=== PATIENT | female | born 1985 | race Caucasian/White ===

== ENCOUNTER 2018-07-06 00:08 | Emergency (ER) | payer SELFPAY ==
[~2018-07-06] VITALS: Ht 160 cm; Wt 100.0 kg
[~2018-07-06 00:08] MED LIST: ALBU2.5V13 NEB; BENZ2TAB7 PO; CYCL5TAB PO; GABAPENTIN; HYDR-3735 GT; HYDR-519 PO; LURA40TA PO; MISO200T PO; Pantoprazole Sodium PO; TERB250T51 PO; TRAM50TA3 PO; TRIA15OI8 TP
[2018-07-06] MEDS ORDERED: ONDANSETRON 4MG ODT PO ONE (04:15)
[2018-07-06] MEDS ORDERED: KETOROLAC 60MG/2ML VIAL IM ONE (04:15)
[2018-07-06 05:55] VITALS: BP 120/74
== END 2018-07-06 05:55 | disposition home or self-care (01) ==
LOC: ER 00:08
DX: S93.401A Sprain of unspecified ligament of right ankle, initial encounter (principal); R11.2 Nausea with vomiting, unspecified; R19.7 Diarrhea, unspecified; J45.909 Unspecified asthma, uncomplicated; F17.200 Nicotine dependence, unspecified, uncomplicated; W01.0XXA Fall on same level from slipping, tripping and stumbling without subsequent striking against object, initial encounter; Y93.01 Activity, walking, marching and hiking; Y93.89 Activity, other specified; Y92.834 Zoological garden (Zoo) as the place of occurrence of the external cause; Z88.0 Allergy status to penicillin; Z88.3 Allergy status to other anti-infective agents; Z88.6 Allergy status to analgesic agent; Z90.49 Acquired absence of other specified parts of digestive tract
CPT/HCPCS: 73610; 81025; 96372; 99283; J1885; Q0162

== ENCOUNTER 2018-07-11 14:53 | Emergency (ER) | payer SELFPAY ==
[~2018-07-11] VITALS: Ht 160 cm; Wt 100.0 kg
[2018-07-11 23:06] VITALS: BP 120/86
[2018-07-11 23:28] LABS: CLARITY URINE CLOUDY (CLEAR); COLOR URINE YELLOW (YELLOW); KETONES URINE NEGATIVE (NEGATIVE); LEUKOCYTE ESTERASE URINE NEGATIVE (NEGATIVE); NITRITE URINE NEGATIVE (NEGATIVE); OCCULT BLOOD URINE NEGATIVE (NEGATIVE); PH URINE 6.5 (4.5-8.0); PROTEIN URINE NEGATIVE (NEGATIVE); SPECIFIC GRAVITY URINE 1.029 (1.005-1.030)
[2018-07-11] MEDS ORDERED: ACETAMINOPHEN 325MG TABLET PO ONE (23:30)
[2018-07-11] MEDS ORDERED: TRAMADOL 50MG TABLET PO ONE (23:45)
== END 2018-07-12 00:52 | disposition left against medical advice (07) ==
LOC: ER 14:53
DX: S09.8XXA Other specified injuries of head, initial encounter (principal); R55 Syncope and collapse; F17.200 Nicotine dependence, unspecified, uncomplicated; J45.909 Unspecified asthma, uncomplicated; W01.190A Fall on same level from slipping, tripping and stumbling with subsequent striking against furniture, initial encounter; Y93.9 Activity, unspecified; Y92.9 Unspecified place or not applicable; Z88.0 Allergy status to penicillin; Z88.3 Allergy status to other anti-infective agents; Z88.6 Allergy status to analgesic agent; Z90.49 Acquired absence of other specified parts of digestive tract
CPT/HCPCS: 81025; 99283

== ENCOUNTER 2019-10-03 19:55 | Emergency (ER) | payer MEDICAID ==
[~2019-10-03] VITALS: Ht 167.6 cm; Wt 78.0 kg
[2019-10-03] MEDS ORDERED: HYDROCODONE/ACETAMINOPHEN 5/325MG TABLET PO STA (20:42)
[2019-10-03] MEDS ORDERED: ONDANSETRON HCL 4MG/2ML INJ IM STA (20:56)
[2019-10-03 23:05] VITALS: BP 131/74
== END 2019-10-03 23:10 | disposition home or self-care (01) ==
LOC: ER 19:55
DX: S00.93XA Contusion of unspecified part of head, initial encounter (principal); M79.605 Pain in left leg; M25.512 Pain in left shoulder; V49.40XA Driver injured in collision with unspecified motor vehicles in traffic accident, initial encounter; Y93.89 Activity, other specified; Y92.410 Unspecified street and highway as the place of occurrence of the external cause; J45.909 Unspecified asthma, uncomplicated; Z88.0 Allergy status to penicillin; Z88.6 Allergy status to analgesic agent; Z98.890 Other specified postprocedural states
CPT/HCPCS: 70450; 73030; 73590; 81025; 96372; 99284; J2405

== ENCOUNTER 2019-11-10 11:23 | Emergency (ER) | payer MEDICAID ==
[~2019-11-10] VITALS: Ht 160 cm; Wt 96.0 kg
[2019-11-10 12:26] LABS: CLARITY URINE CLOUDY (CLEAR); COLOR URINE YELLOW (YELLOW); KETONES URINE NEGATIVE (NEGATIVE); LEUKOCYTE ESTERASE URINE 1+ (NEGATIVE); NITRITE URINE NEGATIVE (NEGATIVE); OCCULT BLOOD URINE NEGATIVE (NEGATIVE); PROTEIN URINE NEGATIVE (NEGATIVE); SPECIFIC GRAVITY URINE 1.017 (1.005-1.030)
[2019-11-10 13:00] LABS: HEMATOCRIT. 35.6 % (36.0-48.0); MEAN CORPUSCULAR HEMOGLOBIN 28.9 pg (28.0-32.0); MEAN CORPUSCULAR VOLUME 85.6 fL (81.0-99.0); MEAN PLATELET VOLUME 8.1 fl (7.4-10.4); PLATELET 261 x1000/uL (130-400); RED BLOOD CELL COUNT 4.16 mill/uL (4.2-5.4)
[2019-11-10 13:07] LABS: CHLORIDE 107 mEq/L (98-107)
[2019-11-10 13:30] VITALS: BP 142/86
[2019-11-10 13:30] LABS: B-HCG QUANTITATIVE 117929 mIU/mL (<3)
[2019-11-10] MEDS ORDERED: NITROFURANTOIN 100MG M/M CAPSULE PO NR (13:30)
[2019-11-10 14:01] LABS: PLATELET ESTIMATE NORMAL
== END 2019-11-10 15:48 | disposition left against medical advice (07) ==
LOC: ER 11:23
DX: O98.511 Other viral diseases complicating pregnancy, first trimester (principal); U07.1 COVID-19; O23.11 Infections of bladder in pregnancy, first trimester; O99.011 Anemia complicating pregnancy, first trimester; D64.9 Anemia, unspecified; J45.909 Unspecified asthma, uncomplicated; Z3A.08 8 weeks gestation of pregnancy
CPT/HCPCS: 36415; 76801; 80053; 81003; 84702; 85025; 93005; 99285

== ENCOUNTER 2022-09-07 04:08 | Emergency (ER) | payer MEDICAID ==
[~2022-09-07] VITALS: Ht 172.7 cm; Wt 95.0 kg
[~2022-09-07 04:08] MED LIST changes: -LURA40TA PO; +LURA40TA2 PO; -TERB250T51 PO; +TERB250T88 PO
[2022-09-07] MEDS ORDERED: HYDROCODONE/ACETAMINOPHEN 5/325MG TABLET PO ONE (07:30)
[2022-09-07] MEDS ORDERED: HYDR-4001 MT (07:41)
[2022-09-07] MEDS ORDERED: MORPHINE SULFATE 10 MG/ML CPJ IM ONE (08:00)
[2022-09-07 08:08] VITALS: BP 114/76
[2022-09-07] MEDS ORDERED: LIDOCAINE 5% PATCH TOP SCH (09:00)
== END 2022-09-07 08:10 | disposition home or self-care (01) ==
LOC: ER 04:08
DX: S80.01XA Contusion of right knee, initial encounter (principal); J45.909 Unspecified asthma, uncomplicated; F12.90 Cannabis use, unspecified, uncomplicated; Z88.0 Allergy status to penicillin; Z88.6 Allergy status to analgesic agent; Z88.8 Allergy status to other drugs, medicaments and biological substances; W01.0XXA Fall on same level from slipping, tripping and stumbling without subsequent striking against object, initial encounter; Y93.01 Activity, walking, marching and hiking; Y92.89 Other specified places as the place of occurrence of the external cause; Y99.8 Other external cause status
CPT/HCPCS: 29505; 73562; 81025; 96372; 99283; J2270; L1830; Z7610

== ENCOUNTER 2023-01-29 07:14 | Emergency (ER) | payer MEDICAID, OTHER ==
[~2023-01-29] VITALS: Ht 165.1 cm; Wt 70.0 kg
[~2023-01-29 07:14] MED LIST changes: +BENZ2TAB65 PO; -BENZ2TAB7 PO; +HYDR-4001 MT
[2023-01-29 07:26] VITALS: BP 110/70; PULSE 90; RESP 16; TEMP 98.4; O2SAT 97
== END 2023-01-29 08:25 | disposition left against medical advice (07) ==
LOC: ER 07:14
DX: Z53.21 Procedure and treatment not carried out due to patient leaving prior to being seen by health care provider (principal)
CPT/HCPCS: 99281